=== PATIENT | female | born 1975 | race Caucasian/White ===

== ENCOUNTER 2022-08-01 09:59 | Outpatient (CLI) | payer BC | END 2022-08-01 10:00 | disposition home or self-care (01) | LOC: CSHMAMMO 09:59 | PROVIDERS: ATTEND Obstetrics & Gynecology | DX: Z12.31 Encounter for screening mammogram for malignant neoplasm of breast (principal); Z80.3 Family history of malignant neoplasm of breast | CPT/HCPCS: 77063; 77067 ==

== ENCOUNTER 2024-09-23 14:57 | Outpatient (CLI) | payer BC | END 2024-09-23 14:58 | disposition home or self-care (01) | LOC: CSHMAMMO 14:57 | PROVIDERS: ATTEND Obstetrics & Gynecology | DX: Z12.31 Encounter for screening mammogram for malignant neoplasm of breast (principal); Z80.3 Family history of malignant neoplasm of breast | CPT/HCPCS: 77063; 77067 ==